=== PATIENT | male | born 1985 | race Caucasian/White ===

== ENCOUNTER 2021-03-29 15:12 | Emergency (ER) | payer OTHER ==
[~2021-03-29] VITALS: Ht 172.7 cm; Wt 91.0 kg
[2021-03-29 15:25] VITALS: BP 138/95
[2021-03-29] MEDS ORDERED: KETOROLAC TROMETHAMINE 10 MG TABLET PO PRN (15:45)
--- NOTE | 2021-03-29 15:53 | PHYS DOC ---
Past Medical History Past Surgical History: Other Additional Past Surgical Histo: bilateral eyes, R ankle General Adult EDM: Chief Complaint: BACK PAIN - NO INJURY Problems: (1) Back pain HPI: HPI: Patient is a 35 year old male who presents with thoracic back pain that started about 1 week ago. 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 Patient states that the onset of pain, it felt like a "achy soreness." Last week the patient was seen in urgent care where he received a shot of Toradol and a prescription for Flexeril at home. He states that the Toradol shot did alleviate his pain and allowed him to sleep, but when he woke up he was in pain again. The Flexeril on its own is not alleviating his symptoms. He says that ice packs do relieve his pain, but the pain comes back within minutes of removing the ice. He has also tried [id number] Salonpas patches that have not alleviated his pain. Patient denies any injury or trauma causing back pain. Patient denies fever, headache, neck pain, low back pain, incontinence, paresthesias. Patient has no other complaints at this time Review of Systems: Review of Systems: Constitutional: See HPI. [] Respiratory: Denies cough or shortness of breath. [] Cardiovascular: Denies chest pain or edema. [] GI: Denies abdominal pain, nausea, vomiting, diarrhea. [] : Denies dysuria. [] Musculoskeletal: See HPI [] Integument: Denies rash. [] Neurologic: See HPI. [] Heart Score: C/O Chest Pain: No Risk Factors: Risk Factors: DM, Current or recent (<one month) smoker, HTN, HLP, family hi story of CAD, obesity. Risk Scores: Score 0 - 3: 2.5% MACE over next 6 weeks - Discharge Home Score 4 - 6: 20.3% MACE over next 6 weeks - Admit for Clinical Observation Score 7 - 10: 72.7% MACE over next 6 weeks - Early Invasive Strategies Allergies: Allergies: Allergies Coded Allergies Type Severity Reaction Last Updated Verified No Known Drug Allergies 03/29/21 No Physical Exam: PE: Constitutional: Well developed, well nourished, non-toxic appearance. Patient in moderate distress secondary to back pain, moving and shifting an effort to get comfortable. [] HENT: Normocephalic, atraumatic, bilateral external ears normal, nose normal. [] Eyes: PERRLA, conjunctiva normal, no discharge. [] Neck: Normal range of motion, no tenderness, supple, no stridor. [] Cardiovascular:Heart rate regular rhythm, no murmur [] Lungs & Thorax: Bilateral breath sounds clear to auscultation [] Skin: Skin irritation noted over left side thoracic back where Salonpas patch was applied. Otherwise skin is warm and dry without lesions or rash.. [] Back: Paraspinal tenderness over musculature at the level of approximately T8 with muscle spasm appreciated. No bony tenderness or step-offs. No CVA tenderness. [] Extremities: No tenderness, no cyanosis, no clubbing, ROM intact, no edema. [] Neurologic: Alert and oriented X 3, normal motor function, normal sensory function, no focal deficits noted. [] Current Patient Data: Vital Signs: Vital Signs Date Time Temp Pulse Resp B/P (MAP) Pulse Ox O2 Delivery O2 Flow Rate FiO2 03/29/21 15:25 98.5 104 16 138/95 96 Room Air 98.5 EKG: EKG: [] Radiology/Procedures: Radiology/Procedures: [] Course & Med Decision Making: Course & Med Decision Making Pertinent Labs and Imaging studies reviewed. (See chart for details) There is no trauma or injury noted in the patient's presentation or history, so no imaging is indicated. Patient has obvious muscle spasm over the area where he feels pain. Patient states he has a week and 1/2 to 2 weeks worth of Flexeril prescription left at home from urgent care, so I would not be prescr ibing more. Patient was given PO ketorolac versus IM to ensure there is no adverse reaction, so that the pharmacy will agree to fill his prescription. Patient drove himself to the emergency department, so no muscle relaxers will be administered during his visit. Ravindraon Disclaimer: Sara Disclaimer: This electronic medical record was generated, in whole or in part, using a voice recognition dictation system. Departure Departure Impression: Primary Impression: Spasm of thoracic back muscle Disposition: HOME / SELF CARE / HOMELESS Condition: STABLE Referrals: NO PCP (PCP) Patient Instructions: Back Pain, Adult, Kmxp-[id number] Additional Instructions: In addition to the Flexeril you have already been prescribed, take the ketorolac (Toradol) every 6 hours as needed for pain. Do not mix the Toradol with other NSAIDs such as ibuprofen or naproxen. You may alternate with Tylenol if necessary. Scripts Ketorolac Tromethamine (KETOROLAC TROMETHAMINE) 10 Mg Tablet 10 MG PO PRN Q6HRS for 7 Days, #20 TAB Prov: DAMARIS RODRIGUEZ 03/29/21 DAMARIS RODRIGUEZ Mar 29, 2021 15:53
[2021-03-29] MEDS ORDERED: KETO10TA PO (15:56)
[2021-03-29] MEDS ORDERED: TRAM50TA PO (23:24)
[2021-03-29] MEDS ORDERED: ORPH100T PO (23:24)
[2021-03-29] MEDS ORDERED: PRED20TA PO (23:26)
== END 2021-03-29 17:20 | disposition home or self-care (01) ==
LOC: ER 15:12
DX: M62.830 Muscle spasm of back (principal); M54.6 Pain in thoracic spine
CPT/HCPCS: 99283

== ENCOUNTER 2021-03-29 22:15 | Emergency (ER) | payer OTHER ==
[~2021-03-29] VITALS: Ht 172.7 cm; Wt 90.0 kg
[~2021-03-29 22:15] MED LIST: KETO10TA PO
[2021-03-29 22:24] VITALS: BP 135/87
--- NOTE | 2021-03-29 22:27 | PHYS DOC ---
Past Medical History Past Surgical History: Other Additional Past Surgical Histo: bilateral eyes, R ankle (DAMARIS RODRIGUEZ) General Adult EDM: Chief Complaint: BACK PAIN OR INJURY HPI: HPI: Patient is a 35 year old male who returns to the emergency department with persistent, nontraumatic thoracic back pain. Patient was seen earlier in the department by me. At the time of his last visit, he had driven himself to the emergency department and was therefore unable to have any sedative medications. 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 Patient states his father suggested that his pain may be due to kidney stone. He reports that when he returned home, he took one of his prescribed Flexeril and was able to sleep for a couple of hours, however his pain returned almost immediately after. Patient reports that his pain has been constant, and denies colicky pain. Patient denies dysuria, hematuria, flank pain, groin pain, abdominal pain. (DAMARIS RODRIGUEZ) Review of Systems: Review of Systems: Constitutional: Denies fever or chills. [] Respiratory: Denies cough or shortness of breath. [] Cardiovascular: Denies chest pain or edema. [] GI: See HPI : See HPI Musculoskeletal: See HPI Integument: Denies rash. [] Neurologic: Denies headache, focal weakness, incontinence or sensory changes. [] (DAMARIS RODRIGUEZ) Heart Score: C/O Chest Pain: N/A (DAMARIS RODRIGUEZ) Allergies: Allergies: Allergies Coded Allergies Type Severity Reaction Last Updated Verified No Known Drug Allergies 03/29/21 No (DAMARIS RODRIGUEZ) Physical Exam: PE: Constitutional: Patient is in moderate distress secondary to pain. Well developed, well nourished, non-toxic appearance. Neck: Normal range of motion, no tenderness, supple, no stridor. Cardiovascular: Heart rate regular rhythm, no murmur Lungs & Thorax: Bilateral breath sounds clear to auscultation Abdomen: Bowel sounds normal, soft, no tenderness, no masses, no pulsatile masses. Skin: Previously noted skin irritation from Salonpas patch still present. Warm, dry, no erythema, no rash. Back: No obvious deformities. No step-offs, no bony tenderness. Paraspinal tenderness appreciated at approximately level of T8. No CVA tenderness. Neurologic: Alert and oriented X 3, normal motor function, normal sensory function, no focal deficits noted. (DAMARIS RODRIGUEZ) Current Patient Data: Labs: Laboratory Tests Test 03/29/21 22:55 Urine Collection Type Unknown Urine Color Yellow Urine Clarity Cloudy Urine pH 6.5 (<5.0-8.0) Urine Specific Stamps 1.020 (1.000-1.030) Urine Protein Negative mg/dL (NEG-TRACE) Urine Glucose (UA) Negative mg/dL (NEG) Urine Ketones (Stick) Negative mg/dL (NEG) Urine Blood Negative (NEG) Urine Nitrite Negative (NEG) Urine Bilirubin Negative (NEG) Urine Urobilinogen Dipstick 1.0 mg/dL (0.2 mg/dL) Urine Leukocyte Esterase Negative (NEG) Urine RBC 0 /HPF (0-2) Urine WBC 0 /HPF (0-4) Urine Squamous Epithelial Cells Few /LPF Urine Bacteria 0 /HPF (0-FEW) Urine Mucus Slight /LPF (DAMARIS RODRIGUEZ) EKG: EKG: [] (DAMARIS RODRIGUEZ) Radiology/Procedures: Radiology/Procedures: [] (DAMARIS RODRIGUEZ) Course & Med Decision Making: Course & Med Decision Making Pertinent Labs and Imaging studies reviewed. (See chart for details) Upon reevaluation after ketorolac and tramadol were administered, patient is still experiencing significant discomfort. Norflex was ordered and administered. Due to ineffectivity of the Flexeril at home the past week and after his visit earlier today, I will send him home with prescriptions for tramadol, Norflex, prednisone. I will also provide a referral to Dr. Dominguez with pain management. (DAMARIS RODRIGUEZ) Dragon Disclaimer: Dragon Disclaimer: This electronic medical record was generated, in whole or in part, using a voice recognition dictation system. (DAMARIS RODRIGUEZ) Departure Departure Impression: Primary Impression: Spasm of thoracic back muscle Disposition: HOME / SELF CARE / HOMELESS Condition: STABLE Referrals: NO PCP (PCP) KHOA DOMINGUEZ MD Patient Instructions: Back Pain, Adult, [id number] Additional Instructions: You may take the Norflex, tramadol and prednisone together. These medications in combination should providing significant relief. I also provided follow-up with Dr. Dominguez, who specializes in pain management. Scripts Prednisone (PREDNISONE) 20 Mg Tablet 2 TAB PO BID for 5 Days, #20 TAB Prov: DAMARIS RODRIGUEZ 03/29/21 Tramadol Hcl (TRAMADOL HCL) 50 Mg Tablet 50 MG PO Q6HRS PRN for PAIN for 7 Days, #28 TAB Prov: DAMARIS RODRIGUEZ 03/29/21 Orphenadrine Citrate (ORPHENADRINE CITRATE) 100 Mg Tablet.er 100 MG PO BID for 7 Days, #14 TAB.SR Prov: DAMARIS RODRIGUEZ 03/29/21 Attending Signature Attending Signature I have reviewed the PA/BOARD HAMMER OPERATOR's note and plan of care. I was available for consultation as needed during the patient's visit in the emergency department. I agree with the clinical impression, plan, and disposition. (MOHAN NERI DO) DAMARIS RODRIGUEZ Mar 29, 2021 22:27 MOHAN NERI DO Mar 30, 2021 00:22
[2021-03-29] MEDS ORDERED: KETOROLAC 60 MG/2 ML VIAL. IM ONE (22:30)
[2021-03-29] MEDS ORDERED: fentaNYL PF VIAL 100 MCG/2 ML VIAL IM ONE (22:30)
[2021-03-29 23:05] LABS: BILIRUBIN,URINE NEGATIVE (NEG); CLARITY,URINE CLOUDY; COLOR,URINE YELLOW; NITRITE,URINE NEGATIVE (NEG); PH,URINE 6.5 (<5.0-8.0); PROTEIN,URINE NEGATIVE (NEG-TRACE)
[2021-03-29 23:17] LABS: BACTERIA,URINE 0 /HPF (0-FEW); RBC,URINE 0 /HPF (0-2); WBC,URINE 0 /HPF (0-4)
[2021-03-29] MEDS ORDERED: TRAM50TA PO (23:24)
[2021-03-29] MEDS ORDERED: ORPH100T PO (23:24)
[2021-03-29] MEDS ORDERED: PRED20TA PO (23:26)
[2021-03-29] MEDS ORDERED: ORPHENADRINE CITRATE 60 MG/2 ML VIAL. IM ONE (23:30)
== END 2021-03-29 23:47 | disposition home or self-care (01) ==
LOC: ER 22:15
DX: M62.830 Muscle spasm of back (principal); M54.6 Pain in thoracic spine
CPT/HCPCS: 81001; 96372; 99284; J1885; J2360; J3010